=== PATIENT | female | born 1995 | race Caucasian/White ===

== ENCOUNTER 2018-04-13 23:51 | Emergency (ER) | payer BC, OTHER ==
[2018-04-13 23:58] VITALS: BP 128/89
--- NOTE | 2018-04-14 00:23 | EDPHY ---
H & P Time Seen by Provider: 04/14/18 00:01 HPI/ROS: CHIEF COMPLAINT: Left foot pain HISTORY OF PRESENT ILLNESS: 23-year-old female via private vehicle complaining of acute left lateral dorsal foot pain after she was skipping this evening, rolled her foot. Unable to bear weight. No ankle pain. No calcaneal pain. No fall from height. No proximal tibia or fibula pain. PRIMARY CARE PROVIDER: REVIEW OF SYSTEMS: A ten point review of systems was performed and is negative with the exception of the items mentioned in the HPI PHYSICAL EXAM (Prior to examination, patient consented to physical exam, hands were washed and my usual and customary physical exam procedures followed) 1) GENERAL: Well-developed, well-nourished, alert and oriented. Appears to be in no acute distress. 2) HEAD: Normocephalic 3) HEENT: Pupils equal, round, reactive to light bilaterally. 4) LUNGS: Breathing comfortably. 5) MUSCULOSKELETAL: Tender to palpation dorsal midfoot with associated soft tissue swelling. Ankle nontender. proximal tibia and fibula nontender .5th MT nontender negative Foote test, compartments soft 6) SKIN: Intact. 7) VASCULAR: DP,PT pulses and cap refill present and brisk DIFFERENTIAL DIAGNOSIS: in no particular order including but not limited to fracture, sprain, compartment syndrome Xray of the left a foot interpreted by myself: no definitive acute osseous abnormality Procedure: Crutches indications for crutch use discussed with patient. Patient fitted for crutches by ER staff. Observed ambulating with crutches. I think the patient has the capacity to safely use crutches. Usual and customary crutch walking precautions provided Procedure: Splint A cesar boot splint was applied by ER ammonia technician. After application of the splint I returned and re-examined the patient. The splint was adequately immobilizing the joint and distal to the splint the patient's circulation and sensation were intact. Patient shows no signs of compartment syndrome. Was given orthopedic precautions. Smoking Status: Current some day smoker Constitutional: Initial Vital Signs Temperature (C) 36.7 C 04/13/18 23:56 Heart Rate 122 H 04/13/18 23:56 Respiratory Rate 18 04/13/18 23:56 Blood Pressure 128/89 H 04/13/18 23:56 O2 Sat (%) 100 04/13/18 23:56 O2 Delivery Mode Room Air Allergies/Adverse Reactions: amoxicillin Allergy (Verified 04/13/18 23:58) Penicillins Allergy (Verified 04/13/18 23:58) Home Medications: Medication Instructions Recorded NK [No Known Home Meds] 04/13/18 MDM/Departure - MDM Imaging: I viewed and interpreted images myself Medications Given: Discontinued Medications Hydrocodone Bitart/Acetaminophen ([place] 5/325mg Prepack#6) 1 btl TAKEHOME EDNOW ONE Stop: 04/14/18 00:25 Last Admin: 04/14/18 00:40 Dose: 1 btl ED Course/Re-evaluation: Re-evaluation with serial exams. Images interpreted myself showed no definitive acute osseous abnormality. Neurovascular intact. Soft compartments. Discussed imaging results. Discussed limitations of imaging. Informed that non osseous injury not ruled out. Stressed the importance of orthopedic follow-up, elevation, usual and customary orthopedic precautions and instructions provided. She feels comfortable being discharged I saw this patient independently based on established practice protocols. Care of patient under supervision of secondary supervising physician Dr Pena . - Depart Disposition: Home, Routine, Self-Care Clinical Impression: Sprain of left foot Qualifiers: Encounter type: initial encounter Qualified Code(s): S93.602A - Unspecified sprain of left foot, initial encounter Condition: Good Instructions: Hydrocodone/Acetaminophen (By mouth), Foot Sprain (ED) Additional Instructions: Return to the ER immediately if you experience discoloration, have worsening pain, numbness, tingling, or any other symptoms that concern you. If you received x-rays in the emergency department today, be advised, that ligamentous , tendon, muscular, and other non-bony injury cannot be fully ruled out. Try to keep your affected extremity elevated above the level of your chest, and keep cold packs on the affected area, for the next 48 hours. Referrals: Clarence Thomas MD [Medical Doctor] - 2-3 days, call for appt.
[2018-04-14] MEDS ORDERED: HYDROCOD/APAP 5/325 PREPACK#6 BTL TAKEHOME ONE (00:24)
== END 2018-04-14 00:40 | disposition home or self-care (01) ==
DX: S93.602A Unspecified sprain of left foot, initial encounter (principal); W18.40XA Slipping, tripping and stumbling without falling, unspecified, initial encounter; Y93.9 Activity, unspecified; F17.200 Nicotine dependence, unspecified, uncomplicated
CPT/HCPCS: L4386